=== PATIENT | male | born 1935 | race Hispanic/Latino ===

== ENCOUNTER 2020-02-15 02:57 | Emergency (ER) | payer MEDICARE ==
--- NOTE | 2020-02-15 04:48 | XRay Report ---
LUMBAR SPINE 3 VIEWS INDICATION: Trauma low back pain following injury. COMPARISON: None. FINDINGS: There is no fracture, subluxation, or other radiographic abnormality of the lumbar spine. Mild discog enic and facet arthropathy primarily involving the lower lumbar spine causing moderate bilateral neur al foraminal stenosis at L5-S1. Signer Name: Pilo Duran MD Signed: 02/15/2020 4:44 AM Workstation Name: [id number]
--- NOTE | 2020-02-15 04:49 | XRay Report ---
Right hip 3 views INDICATION: Right hip pain following injury IMPRESSION: No displaced fracture or subluxation of the right hip identified. Mild degenerative grady es of the right hip. Limited exam. Mild degenerative changes of both hips. Signer Name: Pilo Duran MD Signed: 02/15/2020 4:45 AM Workstation Name: [id number]
--- NOTE | 2020-02-15 04:50 | XRay Report ---
Thoracic spine 2 views INDICATION: Back pain following injury IMPRESSION: Limited exam especially in the lateral view. Diffuse osteopenia. The upper thoracic spine is difficult to evaluate. Multilevel thoracolumbar degenerative changes present. Signer Name: Pilo Duran MD Signed: 02/15/2020 4:46 AM Workstation Name: [id number]
--- NOTE | 2020-02-15 04:52 | Cat Scan Report ---
CT head without contrast INDICATION : Headache following injury. TECHNIQUE: Axial imaging performed from the skull apex through the skull base without the use of con trast. All CT examinations performed at this facility utilize dose modulation, iterative reconstruct ion or weight-based dosing, when appropriate, to reduce radiation dose to as low as reasonably achiev able. COMPARISON: None FINDINGS: No acute intracranial hemorrhage or parenchymal abnormality. Mild diffuse cerebral atrophy . Ventricles are normal in size and appear symmetric. Soft tissues including the orbits appear norm al. No acute osseous abnormality. Sinuses and mastoid air cells are clear. IMPRESSION: No acute abnormality. Signer Name: Pilo Duran MD Signed: 02/15/2020 4:48 AM Workstation Name: [id number]
--- NOTE | 2020-02-15 04:54 | Cat Scan Report ---
CT cervical spine without contrast INDICATION: Trauma. Neck pain following injury TECHNIQUE: Axial imaging performed through the cervical spine without the use of contrast. Sagittal and coronal reconstructed images were also reviewed. All CT scans at this location are performed us ing CT dose reduction for ALARA by means of automated exposure control. COMPARISON: None FINDINGS: Alignment: Spinal alignment is normal. Bones: There is no acute osseous abnormality. Moderate multilevel discogenic DJD is present. Soft tissues: No acute or significant incidental soft tissue abnormality. Moderate amount of soft ti ssue density identified within both external auditory canals. IMPRESSION: No acute abnormality. Signer Name: Pilo Duran MD Signed: 02/15/2020 4:50 AM Workstation Name: [id number]
[2020-02-15 06:05] VITALS: BP 116/71
--- NOTE | 2020-02-15 06:48 | Emergency Department Report ---
ED Fall HPI - General Chief Complaint: Fall Stated Complaint: FALL Time Seen by Provider: 02/15/20 03:43 Source: EMS Mode of arrival: Stretcher - History of Present Illness Initial Comments: Patient is 84 years old male with history of dementia who is residing currently at [facility] for acute psychosis. Patient brought to the emergency room via EMS for evaluation after a fall. EMS reported that patient was walking to the bathroom and he felt tripped. Patient is complaining of right hip pain and lower back pain. No loss of consciousness according to the EMS report. MD Complaint: fall -: Last night Fall From: standing Fall Witnessed: yes, by living facility s Place Fall Occurred: long term/SNF Loss of Consciousness: none Prolonged Down Time?: no Symptoms Prior to Fall: none Location: back, pelvis - Related Data Allergies Allergy/AdvReac Type Severity Reaction Status Date / Time No Known Allergies Allergy Unverified 02/15/20 03:07 ED Review of Systems ROS: Stated complaint: FALL Other details as noted in HPI Comment: All other systems reviewed and negative Constitutional: denies: chills, fever Respiratory: denies: cough, shortness of breath Cardiovascular: denies: chest pain Gastrointestinal: denies: abdominal pain Musculoskeletal: back pain, arthralgia Neurological: denies: headache ED Past Medical Hx - Past Medical History Previous Medical History?: Yes Hx Psychiatric Treatment: Yes (Psychosis) Hx Dementia: Yes - Social History Smoking Status: Unknown if ever smoked ED Physical Exam - General Limitations: Altered Mental Status General appearance: alert, in no apparent distress - Head Head exam: Present: atraumatic, normocephalic, normal inspection - Eye Eye exam: Present: normal appearance - ENT ENT exam: Present: normal exam, normal orophraynx, mucous membranes moist - Neck Neck exam: Present: normal inspection, full ROM. Absent: lymphadenopathy, thyromegaly - Respiratory Respiratory exam: Present: normal lung sounds bilaterally - Cardiovascular Cardiovascular Exam: Present: regular rate, normal rhythm, normal heart sounds - GI/Abdominal GI/Abdominal exam: Present: soft, normal bowel sounds. Absent: distended, tenderness, guarding, rebound, rigid, organomegaly, mass, bruit, pulsatile mass, hernia - Extremities Exam Extremities exam: Present: normal inspection - Neurological Exam Neurological exam: Present: altered, CN II-XII intact. Absent: motor sensory deficit - Skin Skin exam: Present: dry. Absent: cyanosis ED Course Vital Signs 02/15/20 02/15/20 02/15/20 03:25 03:51 06:04 Temperature 97.7 F Pulse Rate 60 60 Respiratory 20 20 20 Rate Blood Pressure 94/46 116/71 [Left] O2 Sat by Pulse 96 97 99 Oximetry ED Medical Decision Making - Radiology Data Radiology results: report reviewed - Medical Decision Making Patient is 84 years old male with history of dementia who is residing currently at [facility] for acute psychosis. Patient brought to the emergency room via EMS for evaluation after a fall. EMS reported that patient was walking to the bathroom and he felt tripped. Patient is complaining of right hip pain and lower back pain. No loss of consciousness according to the EMS report. In the emergency room patient remained stable with stable vital signs. Patient sleeping comfortably no acute distress easily workable. CT brain, CT cervical spine is negative for acute finding. X-ray of the right hip, lumbar and thoracic spine is negative for acute finding. Patient will be discharged back to his psychiatric facility. Patient is to follow-up with his primary care physician in the next 2 to 3 days for further management. Critical care attestation.: If time is entered above; I have spent that time in minutes in the direct care of this critically ill patient, excluding procedure time. ED Disposition Clinical Impression: Fall, Head injury, Back pain, Right hip pain Disposition: TO HOME OR SELFCARE Is pt being admited?: No Condition: Stable Instructions: Fall Prevention for Older Adults (ED), Contusion in Adults (ED), Minor Head Injury (ED) Referrals: PRIMARY CARE, [Primary Care Provider] - 3-5 Days
== END 2020-02-15 08:40 | disposition home or self-care (01) ==
LOC: ED 02:57
DX: S09.90XA Unspecified injury of head, initial encounter (principal); M54.5 Low back pain; M25.551 Pain in right hip; F29 Unspecified psychosis not due to a substance or known physiological condition; F03.90 Unspecified dementia, unspecified severity, without behavioral disturbance, psychotic disturbance, mood disturbance, and anxiety; W01.0XXA Fall on same level from slipping, tripping and stumbling without subsequent striking against object, initial encounter; Y93.89 Activity, other specified; Y92.89 Other specified places as the place of occurrence of the external cause; Y99.8 Other external cause status
CPT/HCPCS: 70450; 72070; 72100; 72125